=== PATIENT | male | born 1955 | race Caucasian/White ===

== ENCOUNTER 2020-03-06 19:08 | Emergency (ER) | payer OTHER ==
[~2020-03-06 19:08] MED LIST: Amiodarone 150 MG/3 ML VIAL ONE; Calcium Chloride 1 GM/10 ML Abboject SYRINGE ONE; EPINEPHrine 1 MG/10 ML Abboject SYRINGE ONE; Sodium Bicarb 50 MEQ/50 ML Abboject 8.4% SYRINGE ONE
[2020-03-06] MEDS ORDERED: Tenecteplase 50 MG - STEMI KIT ONE (19:19)
[2020-03-06 19:41] LABS: INR-International Normal Ratio 2.8; Prothrombin Time 28.9 sec (12.0-14.7)
[2020-03-06 19:43] LABS: PTT 91.9 sec (22.9-36.1)
[2020-03-06] MEDS ORDERED: EPINEPHrine 1 MG/10 ML Abboject SYRINGE ONE ×2 (19:43)
[2020-03-06 19:52] LABS: Band 7 % (5-11); Eosinophils 2 % (0-10); Lymphocytes 21 % (21-51); MDiff Complete? YES; Mean Corpuscular HGB CONC 30.6 g/dL (32.0-36.0); Mean Corpuscular Hemoglobin 29.4 pg (27.0-31.0); Mean Platelet Volume 9.1 fL (7.4-10.4); Monocytes 2 % (0-10); Myelocyte 3 % (0-0); Neutrophil 48 % (42-75); Nucleated RBC 2 % (0); Platelet Count 31 thou/uL (130-400); Platelet Morphology Comment Appears Decreased; RBC Distribution Width 13.4 % (11.5-14.5); RBC Morphology Normal; Reactive Lymphocytes 17 % (0-10); Red Blood Cell (RBC) Count 4.42 mill/uL (4.70-6.10); White Blood Cell (WBC) Count 22.9 thou/uL (4.8-10.8)
[2020-03-06 19:55] LABS: CKMB 2.5 ng/mL (0-6.6)
[2020-03-06 19:56] LABS: Troponin I 0.637 ng/mL (< 0.028)
[2020-03-06 19:57] LABS: ALT (SGPT) 280 U/L (8-55); AST (SGOT) 325 U/L (5-34); Albumin 2.6 g/dL (3.4-4.8); Alkaline Phosphatase 80 U/L (40-110); Anion Gap 31 mmol/L (10-20); BUN (Urea Nitrogen) 16 mg/dL (8.4-25.7); Bilirubin, Total 0.3 mg/dL (0.2-1.2); Calc. Creatinine Clearance 0 mL/min (70-130); Calcium 9.6 mg/dL (7.8-10.44); Carbon Dioxide 14 mmol/L (23-31); Chloride 101 mmol/L (98-107); Estimated GFR-MDRD 36; Globulin 2.9 g/dL (2.4-3.5); Glucose 356 mg/dL (80-115); Protein, Total 5.5 g/dL (5.8-8.1); Sodium 141 mmol/L (136-145)
[2020-03-06] MEDS ORDERED: Sodium Chloride 0.9% 2,000 ML ONE (20:59)
== END 2020-03-06 21:13 | disposition expired ==
LOC: MADERS 19:08
DX: I46.9 Cardiac arrest, cause unspecified (principal); R06.03 Acute respiratory distress
CPT/HCPCS: 31500; 36680; 80053; 82553; 83735; 83880; 84484; 85025; 85610; 85730; 92950; 96365; 96375; 96376; J0171; J0282; J2997; J3101; J7050